=== PATIENT | female | born 1940 | race Caucasian/White ===

== ENCOUNTER → 2017-07-19 15:50 | Outpatient (CLI) | payer MEDICARE, SELFPAY ==
--- NOTE | 2017-07-19 15:57 | XR_ITS ---
EXAM: XR thoracic spine 3V HISTORY: Left-sided back pain following injury COMPARISON: None FINDINGS: There is mild lower thoracic scoliosis convex left. Mild generalized spondylosis present in the thoracic spine was decrease in the disc space and minimal osteophyte formation. No fracture or dislocation. No lytic or blastic change. There is degenerative disc disease at C4-C5 and C5-C6. IMPRESSION: Thoracic spondylosis as described above, no acute finding
--- NOTE | 2017-07-19 15:57 | XR_ITS ---
XR knee LT 3V HISTORY: Posttraumatic pain ITS.REASON: FALL 2 WKS AGO,INJURY TO LEFT KNEE AND BACK ORDERING PHYSICIAN: Bassam Gonzales MD PATIENT AGE: 76 years COMPARISON: 09/04/2010 FINDINGS: There has been prior total knee prosthesis placement which is in good alignment. No evidence of orthopedic complication. There are mild hypertrophic changes along the inferior patellar region. Generalized vascular calcification noted IMPRESSION: Status post total knee replacement, no acute finding
--- NOTE | 2017-07-19 15:57 | XR_ITS ---
EXAM: XR lumbar spine min 4V HISTORY: Left-sided back pain ORDERING PHYSICIAN: Bassam Gonzales MD PATIENT AGE: 76 years COMPARISON: None FINDINGS: There is mild thoracolumbar scoliosis convex left at 15 degrees. No acute fracture or dislocation. As multilevel degenerative disc disease from T12 to S1. Mildly prominent osteophytes are present at L1, L2, and L3. There are facet arthritic changes at L4-L5 and S1. There is slight decrease in height of T11 and T12. This however appears chronic having a similar appearance on prior CT scan of 01/14/2015. Atherosclerotic changes noted of the aorta. There is total right hip prosthesis present. IMPRESSION: 1. Lumbar spondylosis with scoliosis with degenerative disc disease from T12 S1 and facet arthritic changes at L4-5 and L5-S1 2. No acute fracture
== END ==
PROVIDERS: PCP Family Medicine; Visit Provider Family Medicine
DX: M54.5 Low back pain (principal); M54.6 Pain in thoracic spine; M25.562 Pain in left knee
CPT/HCPCS: 72072; 72110; 73562

== ENCOUNTER → 2017-07-24 13:50 | Outpatient (CLI) | payer MEDICARE, SELFPAY ==
--- NOTE | 2017-07-24 13:55 | NVE_ITS ---
Venous Exam Indications: 729.5 Pain in limb. IMPRESSIONS No evidence of deep or superficial vein thrombosis involving the left lower extremity History: Left lower extremity pain. Risk factors: Hypertension. Recent trauma. Patient fell 2 weeks ago with pain behind knee. Renal disease. Left lower extremity venous duplex evaluation. Doppler flow study including spectral analysis, color and flowers scale imaging. Location: Vascular laboratory. Patient status: Outpatient. Tables: Venous flow and imaging: + +-------+ + Location Overall Flow properties + +-------+ + Left common femoral Patent Normal phasicity; spontaneous; normal augmentation; compressible + +-------+ + Left saphenofemoral junction Patent Compressible + +-------+ + Left profunda femoral Patent Compressible + +-------+ + Left femoral Patent Normal phasicity; spontaneous; normal augmentation; compressible + +-------+ + Left greater saphenous Patent Normal phasicity; spontaneous; normal augmentation; compressible + +-------+ + Left popliteal Patent Normal phasicity; spontaneous; normal augmentation; compressible + +-------+ + Left posterior tibial Patent Compressible + +-------+ + Left peroneal Patent Compressible + +-------+ + Left gastrocnemius Patent Compressible + +-------+ + Left soleal Patent Compressible + +-------+ + (Report amended ) Electronically signed by: Naun Vazquez [id number]
== END ==
PROVIDERS: Family Provider Family Medicine; PCP Family Medicine; Visit Provider Family Medicine
DX: M25.562 Pain in left knee (principal)
CPT/HCPCS: 93971

== ENCOUNTER → 2017-08-29 08:41 | Outpatient (CLI) | payer MEDICARE, SELFPAY ==
[2017-08-29 09:22] LABS: Basophils # 0.1 K/mm3 (0-0.2); Basophils % 1.3 % (0.1-2.0); Eosinophils # 0.2 K/mm3 (0.0-0.4); Eosinophils % 6.1 % (0.1-12.0); Hematocrit 36.5 % (37.0-47.0); Hemoglobin 10.9 g/dL (12.2-16.2); Lymphocytes # 1.1 K/mm3 (0.7-4.5); Lymphocytes % 29.4 K/mm3 (10-50); Mean Corpuscular HGB Conc 29.8 g/dL (31.8-35.4); Mean Corpuscular Hemoglobin 30.4 pg (27.0-31.2); Mean Corpuscular Volume 102.1 fl (81-99); Mean Platelet Volume 9.4 fl (7.4-10.4); Monocytes # 0.1 K/mm3 (0.1-1.0); Monocytes % 3.8 % (1.7-9.3); Neutrophils # 2.2 K/mm3 (1.8-7.8); Neutrophils % 59.4 % (37.0-80.0); Platelet Count 177 K/mm3 (142-424); Red Blood Count 3.58 M/mm3 (4.20-5.40); Red Cell Distribution Width 14.4 % (11.5-17.5); White Blood Count 3.8 K/mm3 (4.8-10.8)
[2017-08-29 09:43] LABS: Alanine Aminotransferase 15 U/L (12-78); Albumin Level 3.1 gm/dL (3.4-5.0); Albumin/Globulin Ratio 0.9 (1.1-1.8); Alkaline Phosphatase 79 U/L (46-116); Anion Gap 13.7 mEq/L (5-15); Aspartate Amino Transferase 14 U/L (15-37); Bilirubin,Total 0.4 mg/dL (0.2-1.0); Blood Urea Nitrogen 35 mg/dL (7-18); Calcium 8.8 mg/dL (8.5-10.1); Carbon Dioxide 24 mmol/L (21.0-32.0); Chloride 109 mmol/L (98-107); Chol/HDL Ratio 3.1 (1-3.5); Cholesterol 117 mg/dL (140-200); Creatinine,Serum 1.65 mg/dL (0.55-1.02); Estimated Glomerular Filt Rate 30 ml/min (>60); GFR (African American) 37 ML/MIN (>60); Globulin 3.5 gm/dl (1.3-3.2); Glucose 125 mg/dL (74-106); HDL Cholesterol 38 mg/dL (29-89); LDL Cholesterol 47 mg/dL (0-130); Potassium 4.7 mmoL/L (3.5-5.1); Sodium 142 mmol/L (136-145); Total Protein,Serum 6.6 gm/dL (6.4-8.2); Triglycerides 158 mg/dL (30-200); VLDL Cholesterol 32 mg/dL (0-40)
[2017-08-29 11:04] LABS: Hemoglobin A1C 5.5 % (0.0-7.0)
[2017-08-30 10:55] LABS: Vitamin D 25 Hydroxy 38.2 ng/mL (30.0-100.0)
== END ==
PROVIDERS: Visit Provider Family Medicine
DX: E78.5 Hyperlipidemia, unspecified (principal); E11.9 Type 2 diabetes mellitus without complications; I10 Essential (primary) hypertension; E03.9 Hypothyroidism, unspecified; D64.9 Anemia, unspecified
CPT/HCPCS: 36415; 80053; 80061; 82652; 83036; 84443; 85025

== ENCOUNTER → 2017-09-03 13:38 | Outpatient (CLI) | payer MEDICARE, SELFPAY ==
--- NOTE | 2017-09-03 13:41 | MR_ITS ---
MR lumbar spine wo con, MR 3-d myelogram/MRCP, HISTORY: Lower back pain, left leg pain/weakness, falling around, pain down leg to toes. Symptoms X10 weeks. ITS.REASON: LEFT LEG PAIN, LEFT LEG WEAKNESS ORDERING PHYSICIAN: Bassam Gonzales MD PATIENT AGE: 76 years COMPARISON: Radiograph of to 918 TECHNIQUE: Standard multiplanar multiecho sequences are performed without contrast. 3-D MIP and myelographic images are also rendered and reviewed FINDINGS: There is normal alignment. The spinal cord ends at the L1 level. There is mild lumbar scoliosis convex left with 7 mm left lateral translation of L2 on L3. There is multilevel degenerative disc disease noted at every level and will be outlined below. T11-T12: Degenerative disc disease. T12-L1: Degenerative disc disease with minimal right paracentral disc protrusion along with facet and ligamentum flavum hypertrophy with right lateral recess and mild right foraminal narrowing. Mild central narrowing of the canal is 12 mm. L1-L2: Degenerative disc disease with bulging disc and endplate hypertrophic changes. Small right paracentral disc with associated hypertrophic change at th causing severe right-sided lateral recess narrowing along with moderate to severe right-sided foraminal narrowing L2-L3: Concentric bulging disc with endplate hypertrophic changes with disc disease along with facet and ligamentum flavum hypertrophy with severe bilateral lateral recess and severe bilateral foraminal narrowing greater on the right. There is transverse narrowing of the canal at 7 mm. L3-L4: Degenerative disc disease with bulging disc along with facet and ligamentum flavum hypertrophy with severe left-sided foraminal narrowing and borderline narrowing of the canal. L4-5: Severe degenerative disc disease with 2 mm anterolisthesis of L4. There is prominent bulging disc with small central disc protrusion along with facet and ligamentum flavum hypertrophy with severe canal stenosis. The transverse canal measures approximately 5 mm. There is also AP canal stenosis as well. There is severe lateral lateral recess narrowing along severe left-sided foraminal narrowing and moderate to severe right-sided foraminal narrowing. L5-S1: Degenerative disc disease with bulging disc along with facet and ligamentum flavum hypertrophy with severe bilateral foraminal narrowing slightly greater on the right. Transverse narrowing of the canal at 10 mm. IMPRESSION: Abnormal MRI of the lumbar spine with multilevel lumbar spondylosis with degenerative disc disease, bulging disc, disc fusion along with facet and ligamentum flavum hypertrophy with severe canal stenosis and severe areas of foraminal and lateral recess narrowing. Canal stenosis is most severe at L4-L5 and the foraminal narrowing is severe multiple levels. Please see above for detailed description at each level.
== END ==
PROVIDERS: Family Provider Family Medicine; PCP Family Medicine; Visit Provider Family Medicine
DX: M79.605 Pain in left leg (principal); R29.898 Other symptoms and signs involving the musculoskeletal system
CPT/HCPCS: 72148; 76376

== ENCOUNTER → 2017-09-26 12:27 | Outpatient (POV) | payer MEDICARE, SELFPAY | PROVIDERS: Visit Provider Neurological Surgery | DX: Z00.00 Encounter for general adult medical examination without abnormal findings (principal) ==

== ENCOUNTER → 2017-09-30 09:58 | Outpatient (POV) | payer MEDICARE, SELFPAY | PROVIDERS: Family Provider Family Medicine; Visit Provider Specialist | DX: M79.605 Pain in left leg (principal); G62.9 Polyneuropathy, unspecified; R29.6 Repeated falls | CPT/HCPCS: 95886; 95909 ==

== ENCOUNTER 2017-10-17 08:30 | Outpatient (RCR) | payer MEDICARE, SELFPAY ==
--- NOTE | 2017-09-03 11:17 | HMH.PTOPEV ---
Rehab Outpatient Evaluation Rehab OP Evaluation Start: 09/03/17 10:45 Freq: Status: Active Protocol: Document 09/03/17 10:45 NOHELIA (Rec: 09/03/17 10:57 NOHELIA [id number]) Electronically Signed By Dontrell Doherty, PT 09/03/17 10:45 Outpatient Therapy Subjective History Subjective History Pt reports severe L LE weakness, pain, and radicular s/s since falling on 07/07/17. Pt reports L ankle is very unstable, L calf and thigh are painful with shooting pain, and L hip and L side of low back are also painful. Pt reports multiple falls since injury d/t L ankle weakness. PMH:neuropathy, DM, OA, L TKA, R YONATAN. Pt scheduled for MRI of lumbar spine on 09/03/17, and NCV study on 09/30/17 for L LE Chief Complaint Pain Gives out/Unstable Paresthesia Weakness Symptom Type Ache Throb Sharp Dull Stabbing Burning Numbness Tingling Shooting Symptoms Relieved By Nothing Rest/Positioning Symptoms Aggravated By Standing Physical Activity Walking Prior Functional Limitations None Current Functional Limitations Lifting Housework Standing Sitting Walking Balance Symptom Description Constant but Variable Level of pain today (0-10) 5 Pain scale - at its best (0-10) 4 Pain scale - at its worst (0-10) 10 Lumbopelvic Eval Posture Thoracic Spine Posture Standing Position Flattened Lumbar Spine Posture Standing Position Flattened Assistive device Assistive Devices Wheelchair Gait Observation General Gait Pattern Observation Antalgic Gait Shuffling Step Decrease Weight Bear (L) Decrease Stride Lngth (L) Palapation tenderness right paraspinal tenderness Yes: 07/14
== END 2017-10-17 08:31 | disposition home or self-care (01) ==
LOC: PT 08:30
PROVIDERS: Family Provider Family Medicine; PCP Family Medicine; Visit Provider Nurse Practitioner Family
DX: R29.6 Repeated falls (principal); M79.605 Pain in left leg; G62.89 Other specified polyneuropathies
CPT/HCPCS: 97010; 97014; 97016; 97035; 97110; 97760; G0283

== ENCOUNTER 2017-10-17 15:53 | Outpatient (RCR) | payer MEDICARE, SELFPAY | END 2017-10-17 15:54 | disposition home or self-care (01) | LOC: PT 15:53 | PROVIDERS: Visit Provider Family Medicine | DX: S93.402A Sprain of unspecified ligament of left ankle, initial encounter (principal) ==

== ENCOUNTER 2017-12-05 08:30 | Outpatient (RCR) | payer MEDICARE, SELFPAY ==
--- NOTE | 2017-10-22 10:59 | HMH.PTOPEV ---
PT Outpatient Evaluation Rehab PT Outpatient Evaluation Start: 10/22/17 10:03 Freq: Status: Active Protocol: Document 10/22/17 10:03 NOHELIA (Rec: 10/22/17 10:59 NOHELIA [id number]) Electronically Signed By Dontrell Doherty, PT 10/22/17 10:03 Outpatient Therapy Subjective History Subjective History PT REPORTS H/O CHRONIC L LE WEAKNESS AND PAIN FOR YRS. PT REPORTS FALLING ON 07/07/17, SPRAINING L ANKLE, AND HAS HAD PAIN SINCE. PT RPEORTS MULTIPLE L ANKLE SPRAINS SINCE INITIAL INJURY D/T SEVERE WEAKNESS IN L ANKLE. 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 MM AROUND L ANKLE Chief Complaint Pain Stiff Swelling Gives out/Unstable Paresthesia Weakness Symptom Type Ache Throb Sharp Dull Symptoms Relieved By Rest/Positioning Symptoms Aggravated By Standing Physical Activity Walking Prior Functional Limitations Housework Standing Walking Current Functional Limitations Housework Standing Walking Symptom Description Constant but Variable Level of pain today (0-10) 6 Pain scale - at its best (0-10) 6 Pain scale - at its worst (0-10) 10 Ankle/Foot Eval Gait Observation General Gait Pattern Observation Antalgic Gait Shuffling Step Decrease Weight Bear (L) Decrease Stride Lngth (L) Assistive Device Ambulation Assistive Device Straight Cane Palpation Tenderness left Ankle/Foot Palpation Findings Tenderness Ankle/Foot Palpation Overall Comment 3/4 SINUS TARSI,ATF ATF TTP positive PTF TTP positive CF TTP positive ROM right Ankle/Foot Dorsiflexion w/Knee Extended 0-5 Active Range Motion (degrees) Ankle/Foot Plantar Flexion Active Range 0-45 of Motion (degrees) Ankle/Foot Eversion Active Range of 0-15 Motion (degrees) Ankle/Foot Inversion Active Range of 0-30 Motion (degree
== END 2017-12-05 08:31 | disposition home or self-care (01) ==
LOC: PT 08:30
PROVIDERS: Family Provider Family Medicine; PCP Family Medicine; Visit Provider Family Medicine
DX: M25.572 Pain in left ankle and joints of left foot (principal)
CPT/HCPCS: 97010; 97014; 97016; 97035; 97110; 97116; 97140; 97163; 97760; G0283

== ENCOUNTER → 2018-01-23 14:45 | Outpatient (POV) | payer MEDICARE, SELFPAY ==
[2018-01-23 15:59] LABS: Basophils % 0.7 % (0.1-2.0); Eosinophils # 0.1 K/mm3 (0.0-0.4); Eosinophils % 2.7 % (0.1-12.0); Hemoglobin 9.7 g/dL (12.2-16.2); Lymphocytes # 0.8 K/mm3 (0.7-4.5); Lymphocytes % 18.9 K/mm3 (10-50); Mean Corpuscular HGB Conc 30.3 g/dL (31.8-35.4); Mean Corpuscular Hemoglobin 30.2 pg (27.0-31.2); Mean Corpuscular Volume 99.7 fl (81-99); Monocytes # 0.2 K/mm3 (0.1-1.0); Monocytes % 4.8 % (1.7-9.3); Neutrophils # 3.1 K/mm3 (1.8-7.8); Neutrophils % 72.9 % (37.0-80.0); Platelet Count 138 K/mm3 (142-424); Red Blood Count 3.21 M/mm3 (4.20-5.40); Red Cell Distribution Width 13.6 % (11.5-17.5); White Blood Count 4.2 K/mm3 (4.8-10.8)
[2018-01-23 16:39] LABS: Erythrocyte Sedimentation Rate 51 mm/hr (0-30)
[2018-01-23 16:44] LABS: C-Reactive Protein < 0.2 mg/L (0.0-0.9)
== END ==
PROVIDERS: Family Provider Family Medicine; PCP Family Medicine; Visit Provider Neurological Surgery
DX: D64.9 Anemia, unspecified (principal); E11.42 Type 2 diabetes mellitus with diabetic polyneuropathy
CPT/HCPCS: 36415; 85025; 85651; 86140

== ENCOUNTER → 2018-02-27 14:28 | Outpatient (POV) | payer MEDICARE, SELFPAY | PROVIDERS: Family Provider Family Medicine; PCP Family Medicine; Visit Provider Neurological Surgery | DX: Z00.00 Encounter for general adult medical examination without abnormal findings (principal) ==

== ENCOUNTER → 2018-03-07 10:46 | Outpatient (POV) | payer MEDICARE, SELFPAY | PROVIDERS: Family Provider Family Medicine; PCP Family Medicine; Visit Provider Podiatrist | DX: Z00.00 Encounter for general adult medical examination without abnormal findings (principal) ==

== ENCOUNTER → 2018-08-13 18:14 | Outpatient (CLI) | payer MEDICARE, SELFPAY ==
[2018-08-13 18:20] LABS: Microscopic, Urine URINE MICROSCOPIC (MICROSCOPIC)
[2018-08-13 19:05] LABS: Basophils # 0.1 K/mm3 (0-0.2); Eosinophils # 0.2 K/mm3 (0.0-0.4); Eosinophils % 4.6 % (0.1-12.0); Hematocrit 33.3 % (37.0-47.0); Lymphocytes # 1.1 K/mm3 (0.7-4.5); Mean Corpuscular HGB Conc 30.1 g/dL (31.8-35.4); Mean Corpuscular Volume 102.9 fl (81-99); Mean Platelet Volume 8.8 fl (7.4-10.4); Monocytes # 0.3 K/mm3 (0.1-1.0); Neutrophils % 64.3 % (37.0-80.0); Platelet Count 251 K/mm3 (142-424); Red Blood Count 3.24 M/mm3 (4.20-5.40); Red Cell Distribution Width 15.1 % (11.5-17.5); White Blood Count 4.7 K/mm3 (4.8-10.8)
[2018-08-13 19:39] LABS: Appearance,Urine CLEAR (Clear); Bilirubin,Urine Negative (Negative); Blood, Urine Negative (Negative); Color,Urine ORANGE (Yellow); Glucose,Urine (UA) Negative (Negative); Ketones,Urine Negative (Negative); Leukocyte Esterase,Urine Negative (Negative); Nitrate,Urine POSITIVE (Negative); PH,Urine 5.5 (5.0-8.5); Protein,Urine 1+ (Negative); Specific Gravity, Urine 1.025 (1.005-1.030)
[2018-08-13 20:07] LABS: Bacteria,Urine 1+ /lpf; RBC,Urine Occasional #/hpf (0-3)
[2018-08-13 20:29] LABS: Anion Gap 14.6 mEq/L (5-15); Blood Urea Nitrogen 18 mg/dL (7-18); Calcium 8.3 mg/dL (8.5-10.1); Carbon Dioxide 25 mmol/L (21.0-32.0); Chloride 106 mmol/L (98-107); Creatinine,Serum 1.11 mg/dL (0.55-1.02); Estimated Glomerular Filt Rate 48 ml/min (>60); GFR (African American) 58 ML/MIN (>60); Glucose 109 mg/dL (74-106); Potassium 4.6 mmoL/L (3.5-5.1); Sodium 141 mmol/L (136-145)
== END ==
PROVIDERS: Visit Provider Family Medicine
DX: I10 Essential (primary) hypertension (principal); E11.9 Type 2 diabetes mellitus without complications; N28.9 Disorder of kidney and ureter, unspecified; K74.60 Unspecified cirrhosis of liver; K57.90 Diverticulosis of intestine, part unspecified, without perforation or abscess without bleeding; W19.XXXA Unspecified fall, initial encounter; Z79.84 Long term (current) use of oral hypoglycemic drugs
CPT/HCPCS: 80048; 81001; 85025

== ENCOUNTER 2019-04-02 15:30 | Outpatient (RCR) | payer MEDICARE, SELFPAY ==
--- NOTE | 2018-12-09 15:45 | HMH.PTOPEV ---
PT Outpatient Evaluation Rehab PT Outpatient Evaluation Start: 12/09/18 14:29 Freq: Status: Active Protocol: Document 12/09/18 15:05 RAMONITA (Rec: 12/09/18 15:45 PHORNE [id number]) Electronically Signed By Archie Miranda, PT 12/09/18 15:05 Outpatient Therapy Subjective History Subjective History Pt is 78 yowf who presents with c/o pain and weakness in right LE ~ 9 mos S/P fall at home with resulting right femur fx. Her fx was at the distal end of the stem from her prior right YONATAN and this required ORIF. She now c/o inability to use hip flexors and she is unable to perform a SLR. SHe also reports pain with walking and any movement of the right LE. She states, Its numb right in the area it was broken at. She also states, I take gabapentin 3 times a day and morphine twice a day and it doesn't really help. She has PMH of anxiety, depression, OA and DM-II with neuropathy. Her neuropathy is considerable and from knee distally B. This neuropathy has caused her significant difficulty with ambulation for several years. Chief Complaint Pain,Weakness Symptom Type Ache,Throb,Numbness Symptoms Relieved By Rest/Positioning Symptoms Aggravated By Standing,Physical Activity, Walking Prior Functional Limitations Walking Current Functional Limitations Standing,Walking Symptom Description Activity Dependent Level of pain today (0-10) 0 Pain scale - at its worst (0-10) 7 Hip/Knee Eval Gait Observation General Gait Pattern Observation Antalgic Gait,Wide Based Gait, Shuffling Step,Decrease Weight Bear (R),Decrease Stride Lngth (R),Decrease Stride Lngth (L) Assistive Device Assistive Devices Rolling / Wheeled Walker Palpation Tenderness bilateral Hip Palpation Findings Tenderness MMT right Hip Flexion Strength Grade 2 Poor Hip Abduction Strength Grade 2 Poor Hip Adduction Strength Grade 3 Fair Hip External Rotation Strengt
--- NOTE | 2019-01-16 09:52 | HMH.RHREAS ---
Rehab Reassessment Rehab OP Re-assessment Start: 01/16/19 09:47 Freq: Status: Active Protocol: Document 01/16/19 09:47 RAMONITA (Rec: 01/16/19 09:52 RAMONITA [id number]) Electronically Signed By Archie Miranda, PT 01/16/19 09:47 Rehab Re-assessment Subjective Subjective Pt reports she has less pain and moving better, but continues to have difficulty with transfers. Objective Objective Notes MMT R LE: Grossly 3/5 throughout right hip Ambulation: Pt ambulating with RW, but with continued decrease in right LE WB and stride length Assessment Progress Assessment Progressing as Expected Assessment Notes Right knee hams and hip flexors remain very tight, ambulating better with RW. Patient goals met ST,2,3,4,5 Goals Not Met LT,2,3,4,5 Revised Goals none Plan Plan Continue per intial POC Frequency of Therapy 2x/wk Duration of therapy 8 wks Time and Billing Re-Eval Time 15 Re-Eval Billing Units 1 PHYSICIAN CERTIFICATION: I certify the specified therapy services for Jumana Ayala are required, authorized, and reviewed every 30 days.
--- NOTE | 2019-03-03 09:23 | HMH.RHREAS ---
Rehab Reassessment Rehab OP Re-assessment Start: 01/16/19 09:47 Freq: Status: Active Protocol: Document 03/03/19 09:19 RAMONITA (Rec: 03/03/19 09:23 PHOKATHY [id number]) Electronically Signed By Archie Miranda, PT 03/03/19 09:19 Rehab Re-assessment Subjective Subjective Pt reports 2 falls over the past 3 wks, both on the right side with significant hematoma . No serious injury, only soreness. She reports tingling and numbness in B LE. Objective Objective Notes MMT Right hip: grossly 3+/5 throughout. Ambulation: Pt now ambulating with RW at all times and not using W/C for any mobility. Continues to ambulate with right LE circumduction gait and external rotation of right hip during stance phase on that side. Assessment Progress Assessment Progressing as Expected Assessment Notes Pt with much improved endurance and strength, but continues to require cues for proper gait pattern. Dynamic standing balance remains poor. Patient goals met ST,2,3,4,5 Goals Not Met LT,2,3,4,5 Revised Goals none Plan Plan Continue per intial POC Frequency of Therapy 2x/wk Duration of therapy 8 wks Time and Billing Re-Eval Time 15 Re-Eval Billing Units 1 PHYSICIAN CERTIFICATION: I certify the specified therapy services for Jumana Ayala are required, authorized, and reviewed every 30 days.
== END 2019-04-02 15:35 | disposition home or self-care (01) ==
LOC: PT 15:30
PROVIDERS: Visit Provider Family Medicine
DX: Z87.81 Personal history of (healed) traumatic fracture (principal); M25.551 Pain in right hip
CPT/HCPCS: 97010; 97110; 97112; 97116; 97163; 97164

== ENCOUNTER → 2019-12-10 16:16 | Outpatient (CLI) | payer MEDICARE, SELFPAY | PROVIDERS: Visit Provider Urology | DX: N39.0 Urinary tract infection, site not specified (principal) | CPT/HCPCS: 87086; 87088; 87186 ==

== ENCOUNTER → 2019-12-25 10:39 | Outpatient (CLI) | payer MEDICARE, SELFPAY ==
--- NOTE | 2019-12-25 10:45 | CA_ITS ---
APPROVED REPORT Left Lower Extremity Venous Study for DVT. 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 States she has had leg pain for several years. She has HTN, hyperlipidemia, and diabetes mellitus. She has pitting edema noted today in LLE. Vein Imaging CFV (L): compressive, spontaneous, phasic, augmentation FEM (L): compressive, spontaneous, phasic, augmentation POP (L): compressive, spontaneous, phasic, augmentation PTV (L): Not Visualized GSV (L): Thrombus SSV (L): Compressible Peroneals (L):Not Visualized GAS (L): Compressible Findings No evidence of DV in the veins scanned of the left lower extremity. Color flow duplex demonstrates acute superficial thrombophlebitis of the left Great Saphenous Vein below the knee. Conclusion No evidence of DV in the veins scanned of the left lower extremity. Post tib and peroneal vein not demonstrated Color flow duplex demonstrates acute superficial thrombophlebitis of the left Great Saphenous Vein below the knee. Critical Notification Physician Notified Date: 12/25/2019 Time: 11:25 Physician Name: hCristian Report Read Back Electronically signed by : Naun Vazquez MD 12/25/2019 18:45:34
== END ==
PROVIDERS: PCP Family Medicine; Visit Provider Family Medicine
DX: M79.605 Pain in left leg (principal)
CPT/HCPCS: 93971

== ENCOUNTER → 2020-01-21 15:00 | Outpatient (CLI) | payer MEDICARE, SELFPAY | PROVIDERS: Visit Provider Urology | DX: N39.0 Urinary tract infection, site not specified (principal) | CPT/HCPCS: 87086 ==

== ENCOUNTER 2020-03-13 22:16 | Inpatient (IN) | payer MEDICARE, SELFPAY ==
[2020-03-13 22:30] VITALS: BP 124/78; PULSE 148; RESP 26; TEMP 36.4; O2SAT 87; BMI 19.3
--- NOTE | 2020-03-13 22:37 | XR_ITS ---
PROCEDURE: XR CHEST PORTABLE CLINICAL HISTORY: soa Shortness of air COMPARISON: No exams were available for comparison FINDINGS: Mild cardiomegaly.. There is diffuse bilateral alveolar opacification. The consolidation is greater on the right compared to the left. There may be trace bilateral effusions. No acute bony findings. IMPRESSION: Diffuse bilateral alveolar disease which may be due to extensive multifocal pneumonia versus ARDS Dictated by: Naun Vazquez MD 03/14/2020 05:57 Naun Vazquez MD in [place] 03/14/2020 05:57
--- NOTE | 2020-03-13 22:37 | ECG_ITS ---
APPROVED REPORT Exam: Resting ECG HR:154 bpm ECG Measurements Heart Rate 154 AXES QRSd 90 QRS 93 QT 256 T 258 QTc 410 <Conclusion> Undetermined rhythm Rightward axis Low voltage QRS Nonspecific T wave abnormality Abnormal ECG Electronically signed by : Roberto Carlos Dickerson, 03/14/2020 06:54:39
[2020-03-13 22:41] LABS: ABG Base Excess -14.2 mmol/L (-2.4-2.3); ABG HCO3 13.9 mmhg (22.0-26.0); ABG Oxygen Saturation 90 % (90-100); ABG PCO2 36.3 mmhg (35.0-45.0); ABG PO2 68.8 mmhg (80-100)
[2020-03-13 22:42] LABS: Allen's Test Y; Oxygen 2 %; Source R/R
--- NOTE | 2020-03-13 22:44 | HMH.EDSOB ---
ED Disposition Clinical Impression: Severe sepsis with acute organ dysfunction, Septic shock, Diabetes 1.5, managed as type 2, Elevated brain natriuretic peptide (BNP) level, LM (acute kidney injury), Atrial flutter with rapid ventricular response Community acquired pneumonia Qualifiers: Laterality: unspecified laterality Qualified Code(s): J18.9 - Pneumonia, unspecified organism UTI (urinary tract infection) Qualifiers: Urinary tract infection type: site unspecified Hematuria presence: without hematuria Qualified Code(s): N39.0 - Urinary tract infection, site not specified Disposition: Admitted As Inpatient Condition on Discharge: Serious Referrals: Bassam Gonzales MD [Primary Care Provider] - - Critical Care Critical Care Time: Yes Attestation: On 03/13/20, the high probability of a clinically significant, sudden or life threatening deterioration of the following system(s) required my full and direct attention, intervention and personal management. The time I documented below is in addition to time spent performing reported procedures but includes the following listed in this critical care notation. Total Critical Care Time: 90 Vital system(s) involved:: Metabolic Failure, Shock (Septic) My critical care processes included: Assessment & monitoring of V/S, Initial and Re-exams, Data Review/Interpretation, Medication Orders and management, Documentation Medical Decision Making - Medical Records Medical records reviewed: Yes: I reviewed the patient's medical records. - Mehran Inquiry Pt receiving controlled substance: No Vital Signs: 03/13/20 22:30 03/13/20 23:35 03/13/20 23:49 Temperature 97.6 F Temperature Source Oral Pulse Rate [Right] 148 H 130 H 126 H Respiratory Rate 26 H 24 23 Blood Pressure [Right Arm] 124/78 80/63 L 96/46 L Blood Pressure Mean [Right Arm] 93 68 62 Blood Pressure Source [Right Arm] Automatic Cuff Automatic Cuff Blood Pressure Position [Right Arm] Sitting Supine Sitting 02 Sat by Pulse Oximetry 87 L 88 L 94 L Oxygen Delivery Method Room Air Nasal Cannula Nasal Cannula Oxygen Flow Rate (LPM) 2 2 03/14/20 00:00 03/14/20 00:30 03/14/20 00:50 Temperature Temperature Source Pulse Rate [Right] 77 96 H 102 H Respiratory Rate 13 17 Blood Pressure [Right Arm] 82/57 L 111/67 75/54 L Blood Pressure Mean [Right Arm] 65 81 61 Blood Pressure Source [Right Arm] Automatic Cuff Automatic Cuff Blood Pressure Position [Right Arm] Supine Supine 02 Sat by Pulse Oximetry 89 L 87 L 82 L Oxygen Delivery Method Nasal Cannula Nasal Cannula Nasal Cannula Oxygen Flow Rate (LPM) 3 3 4 03/14/20 00:58 03/14/20 01:20 03/14/20 01:36 Temperature Temperature Source Pulse Rate [Right] 100 H 95 H 94 H Respiratory Rate 22 24 Blood Pressure [Right Arm] 109/91 L 78/54 L 110/78 Blood Pressure Mean [Right Arm] 97 62 88 Blood Pressure Source [Right Arm] Blood Pressure Position [Right Arm] 02 Sat by Pulse Oximetry 84 L 92 L Oxygen Delivery Method Nasal Cannula Vapotherm Oxygen Flow Rate (LPM) 4 30 03/14/20 01:50 Temperature Temperature Source Pulse Rate [Right] 92 H Respiratory Rate 20 Blood Pressure [Right Arm] 104/76 L Blood Pressure Mean [Right Arm] 85 Blood Pressure Source [Right Arm] Blood Pressure Position [Right Arm] 02 Sat by Pulse Oximetry 91 L Oxygen Delivery Method Vapotherm Oxygen Flow Rate (LPM) - Lab Data Lab results reviewed: Yes: I reviewed the patient's lab results. Lab Results 03/13/20 22:30: WBC 14.0 H, RBC 3.49 L, Hgb 11.0 L, Hct 36.7 L, MCV 104.9 H, MCH 31.6 H, MCHC 30.1 L, RDW 16.3, Plt Count 309, MPV 9.2, Neut % (Auto) 85.4 H, Lymph % (Auto) 9.3 L, Marshall % (Auto) 3.9, Eos % (Auto) 0.9, Baso % (Auto) 0.5, Neut # (Auto) 11.9 H, Lymph # (Auto) 1.3, Marshall # (Auto) 0.5, Eos # (Auto) 0.1, Baso # (Auto) 0.1, Total Counted 100, Neutrophils % (Manual) 89 H, Band Neutrophils % 5.0, Lymphocytes % (Manual) 5 L, Monocytes % (Manual) 1 L, Platelet Estim
[2020-03-13 22:47] LABS: Basophils # 0.1 K/mm3 (0-0.2); Basophils % 0.5 % (0.1-2.0); Eosinophils # 0.1 K/mm3 (0.0-0.4); Eosinophils % 0.9 % (0.1-12.0); Hematocrit 36.7 % (37.0-47.0); Lymphocytes # 1.3 K/mm3 (0.7-4.5); Lymphocytes % 9.3 % (10-50); Mean Corpuscular HGB Conc 30.1 g/dL (31.8-35.4); Mean Corpuscular Hemoglobin 31.6 pg (27.0-31.2); Mean Corpuscular Volume 104.9 fl (81-99); Mean Platelet Volume 9.2 fl (7.4-10.4); Monocytes # 0.5 K/mm3 (0.1-1.0); Monocytes % 3.9 % (1.7-9.3); Neutrophils # 11.9 K/mm3 (1.8-7.8); Neutrophils % 85.4 % (37.0-80.0); Platelet Count 309 K/mm3 (142-424); Red Blood Count 3.49 M/mm3 (4.20-5.40); Red Cell Distribution Width 16.3 % (11.5-17.5)
[2020-03-13 22:49] LABS: MANUAL DIFFERENTIAL MANUAL DIFFERENTIAL (MANUAL DIFF)
[2020-03-13 23:01] LABS: Chloride 110 mmol/L (98-107); Sodium 139 mmol/L (136-145)
[2020-03-13 23:04] LABS: Alanine Aminotransferase 15 U/L (12-78); Albumin Level 2.8 g/dl (3.5-5.0); Albumin/Globulin Ratio 0.8 (1.1-1.8); Alkaline Phosphatase 141 U/L (38-126); Aspartate Amino Transferase 35 U/L (14-36); Bilirubin,Total 1.2 mg/dl (0.2-1.3); Blood Urea Nitrogen 45 mg/dl (7-17); Carbon Dioxide 19 mmol/L (22.0-30.0); Creatinine Clearance Estimated 16 mL/min (50-200); Estimated Glomerular Filt Rate 19 ml/min (>60); GFR (African American) 23 ML/MIN (>60); Globulin 3.7 g/dL (1.3-3.2); Total Protein,Serum 6.5 g/dl (6.3-8.2)
[2020-03-13 23:05] LABS: Microscopic, Urine URINE MICROSCOPIC (MICROSCOPIC)
[2020-03-13 23:05] LABS: Calcium 8.8 mg/dl (8.4-10.2); Glucose 125 mg/dl (74-100)
[2020-03-13 23:13] LABS: Coronavirus 19 IgG Antibody Negative (Negative); Coronavirus 19 IgM Antibody Negative (Negative); NT Pro Brain Natriuretic Pep. 14800 pg/mL (0-450)
[2020-03-13 23:15] LABS: Lactic Acid 4.2 mmol/L (0.7-2.1)
[2020-03-13 23:18] LABS: Appearance,Urine TURBID (Clear); Blood, Urine 3+ (Negative); Color,Urine YELLOW (Yellow); Glucose,Urine (UA) Negative (Negative); Ketones,Urine Negative (Negative); Leukocyte Esterase,Urine 2+ (Negative); Nitrate,Urine Negative (Negative); Protein,Urine 2+ (Negative); Urobilinogen,Urine 0.2 EU/dl (0.2)
[2020-03-13 23:21] LABS: Troponin I < 0.01 ng/ml (0.00-0.034)
[2020-03-13 23:25] LABS: Anisocytosis 1+; Hypochromasia 2+; Lymphocytes % 5 % (10-50); Macrocytosis 3+; Monocytes % 1 % (2-9); Neutrophils % 89 % (42-76); Platelet Estimate Normal; Total Cells Counted 100
[2020-03-13 23:33] LABS: Bilirubin,Urine Negative (Negative)
[2020-03-13 23:34] LABS: RBC,Urine 20-50 #/hpf (0-3); WBC,Urine TNTC #/hpf (0-3)
[2020-03-13 23:35] VITALS: BP 80/63; PULSE 130; RESP 24; O2SAT 88
--- NOTE | 2020-03-13 23:46 | INFXCTL.NOTE ---
speaking with Dr. Bean
[2020-03-13 23:49] VITALS: BP 96/46; PULSE 126; RESP 23; O2SAT 94
[2020-03-14] VITALS (48 sets, daily range): BP systolic 73–133; BP diastolic 31–98; PULSE 77–110; RESP 12–92; TEMP 36.5–36.8; O2SAT 82–95; BMI 23.6
--- NOTE | 2020-03-14 | ECG_ITS ---
APPROVED REPORT Exam: Resting ECG HR:79 bpm ECG Measurements Heart Rate 79 AXES QRSd 76 QRS 79 QT 352 T 32 QTc 403 <Conclusion> Atrial flutter with variable AV block Low voltage QRS Nonspecific ST and T wave abnormality Abnormal ECG Electronically signed by : Roberto Carlos Dickerson, 03/14/2020 06:54:27
[2020-03-14 00:33] LABS: Adenovirus,PCR Not Detected (NotDetected); Bordetella Pertussis Not Detected (NotDetected); Chlamydophila Pneumoniae, PCR Not Detected (NotDetected); Coronavirus 19, PCR Not Detected (NotDetected); Coronavirus 229E Not Detected (NotDetected); Coronavirus NL63 Not Detected (NotDetected); Coronavirus OC43 Not Detected (NotDetected); Coronovirus HKU1,PCR Not Detected (NotDetected); Human Metapneumovirus Not Detected (NotDetected); Influenza A, PCR Not Detected (NotDetected); Influenza AH1, 2009 Not Detected (NotDetected); Influenza AH1, PCR Not Detected (NotDetected); Influenza AH3,PCR Not Detected (NotDetected); Influenza B, PCR Not Detected (NotDetected); Mycoplasma Pneumoniae, PCR Not Detected (NotDetected); Parainfluenza 1, PCR Not Detected (NotDetected); Parainfluenza 2, PCR Not Detected (NotDetected); Parainfluenza 3, PCR Not Detected (NotDetected); Parainfluenza 4, PCR Not Detected (NotDetected); Respiratory Syncytial Virus Not Detected (NotDetected); Rhinovirus/Enterovirus Not Detected (NotDetected)
--- NOTE | 2020-03-14 00:48 | PC.NURSE ---
Bj-synephrine increased to 140 mcg/min and O2 increased to 4L/M
--- NOTE | 2020-03-14 01:19 | PC.NURSE ---
Bj-synephrine increased to 180mcg/min
[2020-03-14 02:16] LABS: Reflex Lactic Add Lactic Reflex
[2020-03-14 02:34] LABS: Lactic Acid Follow Up (RFLX 1) 2.1 mmol/L (0.7-2.1)
--- NOTE | 2020-03-14 02:38 | PC.NURSE ---
patient up to floor via stretcher per RN and HOOKER UP.
[2020-03-14 02:46] LABS: Troponin I < 0.01 ng/ml (0.00-0.034)
[2020-03-14 02:46] LABS: T4 (Thyroxine) 2.8 ug/dl (5.53-11.0)
[2020-03-14 02:49] LABS: Reflex Lactic (2 hrs) Add Lactic Reflex
--- NOTE | 2020-03-14 05:11 | PC.NURSE ---
Pt A&O x3. Arrived to floor on Cardizem gtt infusing @ 5 mg/hr and currently infusing at rate. Bj Synephrine gtt infusing @ 180 mcg/min. Titrated per protocol. Currently infusing at 140 mcg/min. VSS at this time. Pt remains afebrile. F/C draining to bedside. 10 cc urine output noted since arrival to floor. Urometer placed for accuracy. Pt noted to have ulcer to (L) great toe. Pictures on chart. Pt currently on 70%, 30 L Vapotherm. Crackles noted to (L) base. Expiratory wheezing noted t/o. BS active. Pt has not c/o any discomfort. Family has been in to visit pt. Son's are POA. Pt is full code status. They did not have pt's home medications or list. They state that pt manages self but do not know if she can continue to do so. Will pass on to AM nurse for pharmacy to clarify medications.
[2020-03-14 05:31] LABS: Basophils % 0.2 % (0.1-2.0); Eosinophils # 0.1 K/mm3 (0.0-0.4); Hematocrit 39.9 % (37.0-47.0); Hemoglobin 11.9 g/dL (12.2-16.2); Lymphocytes # 0.9 K/mm3 (0.7-4.5); Mean Corpuscular HGB Conc 29.8 g/dL (31.8-35.4); Mean Corpuscular Hemoglobin 31.5 pg (27.0-31.2); Mean Corpuscular Volume 105.7 fl (81-99); Mean Platelet Volume 9.9 fl (7.4-10.4); Monocytes # 0.3 K/mm3 (0.1-1.0); Monocytes % 2.3 % (1.7-9.3); Neutrophils # 13.5 K/mm3 (1.8-7.8); Neutrophils % 90.5 % (37.0-80.0); Platelet Count 312 K/mm3 (142-424); Red Blood Count 3.78 M/mm3 (4.20-5.40); Red Cell Distribution Width 16.1 % (11.5-17.5); White Blood Count 14.9 K/mm3 (4.8-10.8)
[2020-03-14 05:35] LABS: Anion Gap 14.9 mEq/L (5-15); Blood Urea Nitrogen 45 mg/dl (7-17); Calcium 8.2 mg/dl (8.4-10.2); Carbon Dioxide 17 mmol/L (22.0-30.0); Chloride 114 mmol/L (98-107); Creatinine Clearance Estimated 21 mL/min (50-200); Estimated Glomerular Filt Rate 21 ml/min (>60); GFR (African American) 25 ML/MIN (>60); Glucose 111 mg/dl (74-100); Magnesium 2.1 mg/dl (1.6-2.3); Sodium 140 mmol/L (136-145)
[2020-03-14 05:37] LABS: Lactic Acid Follow up (RFLX 2) 2.6 mmol/L (0.7-2.1)
[2020-03-14 05:38] LABS: Potassium 5.9 mmoL/L (3.5-5.1)
[2020-03-14 05:39] LABS: INR 1.46 (0.9-1.1); Prothrombin Time 15.7 seconds (9.4-11.8)
[2020-03-14 05:49] LABS: Troponin I 0.01 ng/ml (0.00-0.034)
--- NOTE | 2020-03-14 07:00 | XR_ITS ---
PROCEDURE: XR CHEST PORTABLE CLINICAL HISTORY: sob COMPARISON: CR XR CHEST PORTABLE from 03/13/2020 FINDINGS: There remains diffuse bilateral alveolar opacification probably overall not significantly changed considering some improvement in inspiration consistent with bilateral pneumonia versus ARDS. Mild cardiomegaly. No acute bony abnormalities. IMPRESSION: Overall no change in the diffuse bilateral airspace disease which may represent pneumonia or ARDS Dictated by: Naun Vazquez MD 03/14/2020 06:58 Naun Vazquez MD in [place] 03/14/2020 06:58
--- NOTE | 2020-03-14 07:22 | PC.NURSE ---
Bj Synephrine titration as follows: 0327 - 140 mcg/min 0538 - 120 mcg/min 0722 - 110 mcg/min
--- NOTE | 2020-03-14 07:36 | P.CONPHA_ITS ---
[facility] Pharmacy VTE Monitoring - Patient Demographics Admission date: 03/13/20 Report Date: 03/14/20 Time: 07:36 Allergies/Adverse Reactions: Patient Allergies PENICILLIN Allergy (Unknown, Uncoded 01/21/20 09:55) MOUTH SWELLS SULFA (SULFONAMIDE) Allergy (Unknown, Uncoded 01/21/20 09:55) SHAKEY Height: 1.68 m Weight: 66.395 kg Patient Problems: Current Active Problems Community acquired pneumonia (Acute) UTI (urinary tract infection) (Acute) Severe sepsis with acute organ dysfunction (Acute) Septic shock (Acute) Diabetes 1.5, managed as type 2 (Acute) Elevated brain natriuretic peptide (BNP) level (Acute) LM (acute kidney injury) (Acute) Atrial flutter with rapid ventricular response (Acute) - VTE Risk Labs: VTE Related Lab Results Hgb 11.9 g/dL (12.2-16.2) L 03/14/20 05:15 Hct 39.9 % (37.0-47.0) 03/14/20 05:15 Plt Count 312 K/mm3 (142-424) 03/14/20 05:15 PT 15.7 seconds (9.4-11.8) H 03/14/20 05:15 INR 1.46 (0.9-1.1) H 03/14/20 05:15 BUN 45 mg/dl (7-17) H 03/14/20 05:15 Creatinine 2.30 mg/dl (0.52-1.04) H 03/14/20 05:15 Estimated Creat Clear 21 mL/min (50-200) 03/14/20 05:15 VTE Risk Level: Moderate Risk - Prophylaxis VTE Prophylaxis Ordered?: Yes Types of VTE Prophylaxis: TEDS Knee High Location of Applied Device: Bilateral Lower Extremeties
--- NOTE | 2020-03-14 08:00 | CA_ITS ---
APPROVED REPORT Bilateral Lower Extremity Venous Study for DVT. [employer] Apprentice: CT Indications Lower Extremity Pain: Bilateral Lower Extremity Edema: Bilateral swelling/possible dvt Vein Imaging CFV (R): compressive, spontaneous, phasic, augmentation SFJ (R): compressive, spontaneous, phasic, augmentation FEM (R): compressive, spontaneous, phasic, augmentation POP (R): compressive, spontaneous, phasic, augmentation DFV (R): compressive, spontaneous, phasic, augmentation PTV (R): Compressible GSV (R): Partially Compressible SSV (R): Not Visualized Peroneals (R):Not Visualized GAS (R): Not Visualized EIV (L): Not Visualized CFV (L): compressive, spontaneous, phasic, augmentation SFJ (L): compressive, spontaneous, phasic, augmentation FEM (L): compressive, spontaneous, phasic, augmentation POP (L): compressive, spontaneous, phasic, augmentation DFV (L): compressive, spontaneous, phasic, augmentation PTV (L): compressive, spontaneous, phasic, augmentation GSV (L): Partially Compressible SSV (L): Not Visualized Peroneals (L):Not Visualized GAS (L): Compressible Findings RLE negative for DVT LLE negative for DVT RLE and LLE positive for SVT in the GSV. TDS. Conclusion RLE negative for DVT LLE negative for DVT RLE and LLE positive for SVT in the GSV. TDS. Electronically signed by : Naun Vazquez MD 03/14/2020 17:24:10
--- NOTE | 2020-03-14 08:00 | CA_ITS ---
APPROVED REPORT EXAM: Comprehensive 2D, Doppler, and color-flow Echocardiogram [employer] Clerk: Shara Marion CRT Ht: 5 ft 6 in Wt: 120lbs BSA: 1.61 BP: 96/46 mmHg Indications: Shortness of Breath, Diabetes, Atrial Flutter, Hyperlipidemia, Hypertension/HDD, septic, CAP, UTI 2D Dimensions LVOT 1.77 cm (M/F) 1.5-2.5 M-Mode Dimensions RVDd 2.90 cm (0.9-2.6) LVDd 3.67 cm (3.5-5.7) LVDs 3.05 cm (3.5-5.7) IVSd 0.92 cm (0.6-1.1) PWd 0.57 cm (0.6-1.1) EF (Teich) 36.10% FS 16.90% EDV (Teich) 57.00 mL ESV (Teich) 36.40 mL LV Diastology E/A Ratio 5.40 Mitral Valve MV A Velocity 21.00 (40-130 cm/s) Left Ventricle Left atrium is moderately enlarged, left ventricle is normal size, mild concentric left ventricular hypertrophy, visually estimated ejection fraction 55% with no regional wall motion abnormality, diastolic parameters are inconclusive. Right Ventricle Right atrium and right ventricle moderately enlarged with normal contractility. Aortic Valve Aortic valve is thickened and calcified with mild restriction in leaflet mobility, Doppler is not indicated for significant aortic stenosis or aortic insufficiency. Mitral Valve Mitral valve has mitral annular calcification which extends in both anterior posterior mitral leaflet, there is no mitral stenosis, there is mild mitral regurgitation. Tricuspid Valve Tricuspid valve leaflets are minimally thickened, there is moderate tricuspid regurgitation, calculated right ventricular systolic pressure is 43 mmHg. Pulmonic Valve Pulmonic valve is poorly visualized. Great Vessels Aortic root is normal size. Pericardium No significant pericardial effusion noted. Conclusion 1. Technically difficult study because of the patient factors and poor acoustic windows. 2. Moderate biatrial abdomen, normal left ventricular size, mild concentric left ventricular hypertrophy, visually estimated ejection fraction 55% with no regional wall motion abnormality, diastolic parameters are inconclusive. 3. Moderately enlarged right ventricle with normal contractility. 4. Thickened and calcified aortic valve without Doppler evidence of aortic stenosis or aortic insufficiency. 5. Mild mitral and moderate tricuspid regurgitation, calculated right ventricular systolic pressure 43 mmHg. 6. No significant pericardial effusion noted. Electronically signed by : Obed Dodd, 03/14/2020 20:11:56
--- NOTE | 2020-03-14 08:01 | HMH.CNCARD ---
History of Present Illness Consult date: 03/14/20 Consult reason: shortness of breath Chief complaint: SOA Additional Medical History:: 1. Hypertension 2. Hyperlipidemia 3. History of rheumatoid arthritis and Polymyalgia Rheumatica 4. History of spinal stenosis with chronic lower extremity pain 5. History of renal insufficiency with creatinine of 1.1 last year but previously as high as 1.8 back in 2013 6. History of cirrhosis 7. History of hepatitis B 8. Non-smoker 9. Diabetes mellitus type 2 10. Anxiety and depression 11. Hypothyroidism, on replacement therapy History of present illness: 79-year-old white female admitted for progressive shortness of breath with nonproductive cough at home. Patient is responsive to questions but hard of hearing and does not elaborate much. Patient noted to have rapid ventricular response in the ER with underlying rhythm felt to be atrial flutter. Patient was started on IV diltiazem for rate control and Bj-Synephrine for hypotension. Troponins have returned normal overnight. BNP noted to be elevated at 14,800 with chest x-ray evidence of bilateral pneumonia versus ARDS pattern. Patient is COVID negative. Patient has some acute on chronic renal insufficiency and has noted to have a little urine output this morning after over 3 L of fluids during the night. This a.m. heart rate is in the 70 to 90 bpm range on diltiazem 5 mg/h. She remains on Bj-Synephrine with blood pressure in the 120's mmHg systolic. Echocardiogram being performed at this time with preliminary reading showing ejection fraction approximately 50%. [facility] History Medical History: Reports:: Anxiety, Depression, Diabetes Mellitus Type 2, Hepatitis, Hyperlipidemia, Hypertension Denies:: Cancer, MRSA *Have you ever received a pneumonia vaccine?: Yes *Have you received a flu vaccine this season?: No Other Medical History: Reports: Arthritis, Cataracts, Hypothyroidism Laterality Cases: Right: Total Hip Replacement Other Surgeries: Yes: Colon Resection, Hysterectomy-Total, Hysterectomy-Partial Amputation: No Fractures: No - *Social History Last grade of school completed: High school graduate Smoking Status: Never smoker Alcohol Intake: never Alcohol Intake Frequency:: other Substance Use Type: denies use *Occupational Status:: retired Housing: apartment Household Members: none *Travel in the last 8 weeks: None - Psychiatric History Pschychiatric History:: Reports:: Anxiety, Depression Family Hx:: Cancer, Coronary Artery Disease, Diabetes, Heart Attack, Hyperlipidemia, Hypertension, Thyroid Disorder Meds Home Medications Medication Instructions Recorded Confirmed Type atorvastatin 40 mg tablet 40 mg PO HS 08/29/17 03/14/20 History buspirone 10 mg tablet 10 mg PO BID 08/29/17 03/14/20 History gabapentin 300 mg capsule 600 mg PO TID 08/29/17 03/14/20 History leflunomide 20 mg tablet 20 mg PO DAILY 08/29/17 03/14/20 History morphine 15 mg tablet,extended 15 mg PO Q12H 08/29/17 03/14/20 History release Aspirin [Aspirin 81mg EC Tab] 81 mg PO DAILY 03/14/20 03/14/20 History Cholecalciferol (Vitamin D3) 1,000 unit PO DAILY 03/14/20 03/14/20 History [Vitamin D3 1,000 Unit Tab] Cyanocobalamin (Vitamin B-12) 1,000 mcg PO DAILY 03/14/20 03/14/20 History [B-12] Furosemide [Furosemide 20mg Tab*] 20 mg PO DAILY 03/14/20 03/14/20 History Levothyroxine Sodium 175 mcg PO DAILY 03/14/20 03/14/20 History [Levothyroxine 175mcg (0.175mg) Tab] Metformin HCl 500 mg PO DAILY 03/14/20 03/14/20 History Metoprolol Succinate [Metoprolol 25 mg PO DAILY 03/14/20 03/14/20 History Succinate 25mg Tablet*] Naproxen [Naproxen 500mg tab] 500 mg PO BID 03/14/20 03/14/20 History Sertraline HCl [Zoloft] 50 mg PO DAILY 03/14/20 03/14/20 History Sertraline HCl [Zoloft] 100 mg PO HS 03/14/20 03/14/20 History Allergies Allergy/AdvReac Type Severity Reaction Status Date / Time Penicillins Allergy Severe Swelling Verified 03/14/20 0
--- NOTE | 2020-03-14 08:20 | PC.NURSE ---
SPOKE TO ENIO FOR CONSULT FOR
--- NOTE | 2020-03-14 08:49 | PC.NURSE ---
per Nya ROMAN keep sbp >100 neosynephrine gtt decreased as follows: 0753 100mcg/min 0815 90mcg/min 0845 80mcg/min
--- NOTE | 2020-03-14 09:02 | HMH.HP ---
*Admission Date: 03/13/20 *Chief complaint: Shortness of breath *History of present illness: Ms. Ayala is a 79-year-old female with a history of hypertension, hypothyroidism, hyperlipidemia, type 2 diabetes mellitus, depression, history of cirrhosis with history of hepatitis B, mild renal insufficiency, GERD, anemia, osteoarthritis, Pollymyalgia rheumatica and rheumatoid arthritis, and severe lumbar spinal stenosis, and osteoporosis who presented to [facility] With progressive shortness of breath and a nonproductive cough at home. Patient denies chest pain at this time. She states her breathing is better. She does state that her back is bothering her. In the emergency room patient was noted to have a rapid ventricular response with underlying rhythm felt to be atrial flutter. She was started on IV diltiazem drip for rate control and Bj-Synephrine for hypotension. Troponins returned normal. BNP was noted to be elevated at 14,800. Chest x-ray revealed evidence of bilateral pneumonia versus ards pattern. Note also that patient is COVID negative. She also demonstrated acute on chronic renal insufficiency. White blood cell count was found to be 14,000 with a hemoglobin of 11 and hematocrit of 36.7. ABGs revealed a metabolic acidosis with a pH of 7.2 PCO2 of 36.3 PO2 of 68.8 and a bicarb of 13.9. Urinary tract infection also noted Respiratory PCR panel was negative. Chest x-ray revealed diffuse bilateral alveolar disease possibly due to extensive multifocal pneumonia versus ARDS. At the time of this exam patient does answer questions but is hard of hearing and responses are slow and brief. He is currently having an echocardiogram and venous Doppler studies. She has been seen by cardiology with the following: Chads?Vascor at least 5 with a risk of thromboembolic event . Patient started on Lovenox. Preliminary echo shows ejection fraction of about 50%. Noted also weaning of the Bj-Synephrine drip to keep systolic blood pressure greater than 100. Also felt BNP is secondary to pulmonary issues. 80 mg of Lasix given due to minimal urinary output after greater than 3 L of IV fluids given since arrival to the emergency room. Labs this morning show potassium of 5.9. Chest x-ray remains unchanged. [facility] History Medical History: Reports:: Anxiety, Depression, Diabetes Mellitus Type 2, Hepatitis, Hyperlipidemia, Hypertension, Osteoporosis, Renal Insufficiency, Urinary Tract Infection Denies:: Cancer, MRSA *Have you ever received a pneumonia vaccine?: Yes *Have you received a flu vaccine this season?: No Other Medical History: Reports: Arthritis, Cataracts, Hypothyroidism, Osteoporosis Laterality Cases: Left: Total Knee Replacement, Right: Total Hip Replacement Other Surgeries: Yes: Colon Resection, Hysterectomy-Total, Hysterectomy-Partial Amputation: No Fractures: No - *Social History Last grade of school completed: High school graduate Smoking Status: Never smoker Alcohol Intake: never Alcohol Intake Frequency:: other Substance Use Type: denies use *Occupational Status:: retired Housing: apartment Household Members: none *Travel in the last 8 weeks: None - Psychiatric History Pschychiatric History:: Reports:: Anxiety, Depression Family Hx:: Cancer, Coronary Artery Disease, Diabetes, Heart Attack, Hyperlipidemia, Hypertension, Thyroid Disorder Review of Systems - Constitutional Reports weakness - ENT Denies ear pain, Denies sore throat - *Cardiovascular Reports shortness of breath, Denies chest pain - *Respiratory Reports cough, Reports shortness of breath - *Gastrointestinal Denies abdominal pain, Denies nausea, Denies vomiting - *Genitourinary Denies difficulty urinating - *Musculoskeletal Reports joint pain, Reports back pain - *Neurologic Reports weakness, Denies confusion, Denies localized weakness, Denies headache(s), Denies tingling/numbness/burning sensations Meds Home Medications Medication
--- NOTE | 2020-03-14 09:40 | HMH.PHAINT ---
MEDICATION RECONCILIATION COMPLETED ON PATIENT USING EXTERNAL FILL HISTORY FROM PHARMACY AND LIST FROM [facility] OFFICE. -CHRISTIAN ALMONTED
--- NOTE | 2020-03-14 09:43 | US_ITS ---
PROCEDURE: US KIDNEY CLINICAL INDICATION: decreased uop Decreased urinary output COMPARISON: CT ABDPELW/O CT ABD PELVIS W/O CONTRAST from 01/14/2015 CR XR CHEST PORTABLE from 03/14/2020 FINDINGS: The right kidney is 7 0.5 x 7 cm. Left kidney is 7.3 x 6 3 cm. No hydronephrosis. There is a small amount perinephric fluid.. There is generalized ascites. Very little blood flow detected within the kidneys however, this may be artifactual. Study is somewhat limited secondary to portable technique and patient's respiratory status. IMPRESSION: No evidence of hydronephrosis. Generalized ascites. Very little blood flow detected within the kidneys however this could be secondary to the sonographic technique Dictated by: Naun Vazquez MD 03/14/2020 10:44 Naun Vazquez MD in [place] 03/14/2020 10:44
--- NOTE | 2020-03-14 09:55 | PC.NURSE ---
per Dr. Warren: place on 50% venti and keep o2 sat >90%. place at 0935 by Marilyn RT 0935 neosynephrine gtt decreased to 70mcg/min.
--- NOTE | 2020-03-14 10:16 | HMH.PULMCON ---
*Admission Date: 03/13/20 *Reason for consult:: Acute hypoxic respiratory failure, septic shock *History of present illness: Ms. Ayala is a 79-year-old male with with no prior respiratory complaints, not on any inhalers or oxygen therapy at home, history of hypertension, hypothyroidism, dyslipidemia history of cirrhosis secondary to hepatitis B, chronic kidney disease presented to the hospital with 1 to 2-week of worsening shortness of breath associated with nonproductive cough along with subjective fevers and chills. Along with this patient also complains of dizziness for the last 10 days. on presentation to the ED along with hypoxic respiratory failure patient was also found to be in a flutter for which she was started on Cardizem drip that has led to hypotension for which patient has been requiring phenylephrine since admission. Patient denies any recent hospital admissions in the last 1 year, patient never had any episodes of pneumonia. Patient admits having frequent urinary tract infections before. [facility] History Medical History: Reports:: Anxiety, Depression, Diabetes Mellitus Type 2, Hepatitis, Hyperlipidemia, Hypertension, Osteoporosis, Renal Insufficiency, Urinary Tract Infection Denies:: Cancer, MRSA *Have you ever received a pneumonia vaccine?: Yes *Have you received a flu vaccine this season?: No Other Medical History: Reports: Arthritis, Cataracts, Hypothyroidism, Osteoporosis Laterality Cases: Left: Total Knee Replacement, Right: Total Hip Replacement Other Surgeries: Yes: Colon Resection, Hysterectomy-Total, Hysterectomy-Partial Amputation: No Fractures: No - *Social History Last grade of school completed: High school graduate Smoking Status: Never smoker Alcohol Intake: never Alcohol Intake Frequency:: other Substance Use Type: denies use *Occupational Status:: retired Housing: apartment Household Members: none *Travel in the last 8 weeks: None - Psychiatric History Pschychiatric History:: Reports:: Anxiety, Depression Family Hx:: Cancer, Coronary Artery Disease, Diabetes, Heart Attack, Hyperlipidemia, Hypertension, Thyroid Disorder [facility] Pulmonology ROS - Constitutional Reports anorexia, Reports body ache(s), Reports chills - *Cardiovascular Reports shortness of breath, Reports shortness of breath with activity, Reports irregular heart rhythm - *Respiratory Respiratory: Yes shortness of breath, Yes chest congestion, Yes cough, Yes non-productive cough, Yes dyspnea, Yes dyspnea on exertion, No coughing up blood, No pain on inspiration, No pain with cough, No cough with sputum production, No pain with breathing - *Gastrointestinal Gastrointestingal: Reports: system reviewed and no additional complaints, except as docu - *Musculoskeletal Musculoskeletal: Reports system reviewed and no additional complaints, except as docu - *Neurologic Reports weakness, Denies confusion, Denies localized weakness, Denies headache(s), Denies tingling/numbness/burning sensations Meds Home Medications Medication Instructions Recorded Confirmed Type atorvastatin 40 mg tablet 40 mg PO HS 08/29/17 03/14/20 History buspirone 10 mg tablet 10 mg PO BID 08/29/17 03/14/20 History gabapentin 300 mg capsule 600 mg PO TID 08/29/17 03/14/20 History leflunomide 20 mg tablet 20 mg PO DAILY 08/29/17 03/14/20 History morphine 15 mg tablet,extended 15 mg PO Q12H 08/29/17 03/14/20 History release Aspirin [Aspirin 81mg EC Tab] 81 mg PO DAILY 03/14/20 03/14/20 History Cholecalciferol (Vitamin D3) 1,000 unit PO DAILY 03/14/20 03/14/20 History [Vitamin D3 1,000 Unit Tab] Cyanocobalamin (Vitamin B-12) 1,000 mcg PO DAILY 03/14/20 03/14/20 History [B-12] Furosemide [Furosemide 20mg Tab*] 20 mg PO DAILY 03/14/20 03/14/20 History Levothyroxine Sodium 175 mcg PO DAILY 03/14/20 03/14/20 History [Levothyroxine 175mcg (0.175mg) Tab] Metformin HCl 500 mg PO DAILY 03/14/20 03/14/20 History Metoprolol Succinate [Metoprolol 25 mg PO DAILY
--- NOTE | 2020-03-14 10:30 | PC.NURSE ---
Called to bedside by RN for Pt becoming Hypoxic during an ultrasound. Upon entering the room the Pt on 50% Venti mask SPO2 76%. Placed PT on 100% NRB SPO2 100%, Pt did not tolerate mask very well Pt was very anxious and states she wants it off her face. Placed Pt on Vapotherm at 30L 70% SPO2 88-92%. Pt resting comfortably HR 109, RR 16bpm. Will continue to monitor
--- NOTE | 2020-03-14 10:40 | PC.NURSE ---
during ultrasound pt became intolerable of venti mask, started yellowing she couldnt breathe, trying to pull mask off. o2 sat dropped as low as 67% with mask off. RT called to bedside and Dr. Warren paged and stated to place back on vapotherm. pt is tolerating vapotherm well. 30L 70%fio2. o2 sats in low 90's. at 1030 neonephrine gtt decreased to 60mcg/min.
--- NOTE | 2020-03-14 11:07 | PC.NURSE ---
PAGEMiriam ORONA REGARDING URINE OUTPUT ON 7ML THUS FAR, AFTER LASIX.
[2020-03-14 11:24] LABS: POC Glucose,Bedside 118 (70-110)
[2020-03-14 11:31] LABS: Adenovirus,PCR Not Detected (NotDetected); Bordetella Pertussis Not Detected (NotDetected); Chlamydophila Pneumoniae, PCR Not Detected (NotDetected); Coronavirus 229E Not Detected (NotDetected); Coronavirus NL63 Not Detected (NotDetected); Coronavirus OC43 Not Detected (NotDetected); Coronovirus HKU1,PCR Not Detected (NotDetected); Human Metapneumovirus Not Detected (NotDetected); Influenza A, PCR Not Detected (NotDetected); Influenza AH1, 2009 Not Detected (NotDetected); Influenza AH1, PCR Not Detected (NotDetected); Influenza AH3,PCR Not Detected (NotDetected); Influenza B, PCR Not Detected (NotDetected); Mycoplasma Pneumoniae, PCR Not Detected (NotDetected); Parainfluenza 1, PCR Not Detected (NotDetected); Parainfluenza 2, PCR Not Detected (NotDetected); Parainfluenza 3, PCR Not Detected (NotDetected); Parainfluenza 4, PCR Not Detected (NotDetected); Respiratory Syncytial Virus Not Detected (NotDetected); Rhinovirus/Enterovirus Not Detected (NotDetected)
[2020-03-14 12:19] LABS: Creatinine,Urine Random 89 mg/dL (Not Estab.); Urea Nitrogen,Urine Random 80 mg/dl (Not Estab.)
--- NOTE | 2020-03-14 12:38 | PC.NURSE ---
dr. sinclair aware of urine out put, no new orders.
--- NOTE | 2020-03-14 12:38 | PC.NURSE ---
lab notified this rn of need for more urine to run additional test, as soon as pt puts out more urine it will be sent down.
--- NOTE | 2020-03-14 12:59 | CA_ITS ---
APPROVED REPORT Inspector Plating: Valencia Lopez RVT Study Quality: Poor Indications: abnormal renal ultrasound,? DECREASED BLOODFLOW SEEN ON RENAL U/S,NO URINE OUTPUT, BEST EXAM POSSIBLE R/T PT CONDITION Risk Factors Hypertension Hyperlipidemia Diabetes Renal Artery Doppler Mid (R) 56.1/ cm/sec Distal (R) 64.7/ cm/sec Renal Aorta Ratio (R) 0.64 Mid (L) 99.6/ cm/sec Distal (L) 133.3/ cm/sec Renal Aorta Ratio (L) 1.32 Findings Very limited study related to patient condition. Bloodflow is seen in the bilateral kidneys but is decreased, doppler velocities decreased in the right kidney. Proximal renal arteries were not visualized. Conclusion Very limited study related to patient condition. Bloodflow is seen in the bilateral kidneys but is decreased, doppler velocities decreased in the right kidney. Proximal renal arteries were not visualized. Electronically signed by : Naun Vazquez MD 03/14/2020 17:14:25
--- NOTE | 2020-03-14 17:38 | PC.NURSE ---
pt has done okay today. she states she is feeling better but gets anxious when moving because she becomes sob. lungs have wheezing noted, and bases are diminished. pt has neosynphrine currently going at 70mcg/min it was increased at 1130, cardizem at 5mg/hr, and NS at 100ml/hr per order. pt ate half an ice cream and drank half an ensure. pt did refuse to be turned a couple times this shift d/t being afraid of becoming sob. education given. pt cont. on vapotherm at 30L 70%FiO2. pt currently still in afib/flutter on tele rate is in the 80-90's. will cont. to monitor. sons report pt has poor po intake at home and when she uses the bathroom she barely goes.
[2020-03-14 19:51] LABS: POC Glucose,Bedside 84 (70-110)
--- NOTE | 2020-03-14 21:34 | XR_ITS ---
PROCEDURE: XR CHEST PORTABLE CLINICAL HISTORY: SOA COMPARISON: CR XR CHEST PORTABLE from 03/13/2020 CR XR CHEST PORTABLE from 03/14/2020 FINDINGS: There are low lung volumes. There is diffuse bilateral alveolar disease consistent with diffuse pneumonia. There is cardiomegaly. IMPRESSION: Low lung volumes with diffuse bilateral airspace disease probably unchanged given difference in inspiration. Dictated by: Naun Vazquez MD 03/15/2020 06:05 Naun Vazquez MD in [place] 03/15/2020 06:05
[2020-03-14 21:38] LABS: ABG HCO3 13.2 mmhg (22.0-26.0); ABG Oxygen Saturation 95 % (90-100); ABG PO2 86.3 mmhg (80-100); ABG TCO2 14.5 mmhg (23-27)
[2020-03-14 21:40] LABS: Oxygen 100 %; Source Right Radial
[2020-03-14 21:41] LABS: ABG PH 7.13 mmol/L (7.35-7.45)
--- NOTE | 2020-03-14 21:41 | ECG_ITS ---
APPROVED REPORT Exam: Resting ECG HR:92 bpm ECG Measurements Heart Rate 92 AXES QRSd 62 QRS 114 QT 316 T 187 QTc 390 Conclusion Atrial fibrillation Right axis deviation Low voltage QRS Septal infarct, age undetermined Abnormal ECG Electronically signed by : Roberto Carlos Dickerson, 03/18/2020 13:58:21
--- NOTE | 2020-03-14 22:43 | HMH.RR ---
Acute Rapid Response Note - Subjective Date Responded: 03/14/20 Time Responded: 22:00 - Objective Findings: Vital Signs - Last 4 Hours Temperature 97.7 F 03/14/20 19:48 Temperature Source Oral 03/14/20 19:48 Pulse Rate 102 H 03/14/20 20:00 Respiratory Rate 14 03/14/20 18:00 Blood Pressure 111/62 03/14/20 19:00 Blood Pressure Mean 78 03/14/20 19:00 Blood Pressure Source Automatic Cuff 03/14/20 19:00 Blood Pressure Position Supine 03/14/20 19:00 02 Sat by Pulse Oximetry 93 L 03/14/20 20:00 Oxygen Delivery Method 03/14/20 20:26 Oxygen Flow Rate (LPM) 30 03/14/20 20:00 Lab Results for Past 12 Hours 03/14/20 21:34: Specimen Source Right radial, O2 % 100, ABG pH 7.13 L*, ABG pCO2 41.0, ABG pO2 86.3, ABG HCO3 13.2 L, ABG Total CO2 14.5 L, ABG O2 Saturation 95, ABG Base Excess -16.0 L 03/14/20 16:45: POC Glucose 84 03/14/20 11:48: Ur Random Urea Nitrogn 80, Urine Creatinine 89 03/14/20 11:25: Chlamy pneumoniae PCR Not detected, Adenovirus (PCR) Not detected, B. pertussis DNA (PCR) Not detected, Coronavirus OC43 (PCR) Not detected, Coronavirus HKU1 (PCR) Not detected, Coronavirus 229E (PCR) Not detected, Coronavirus NL63 (PCR) Not detected, Human Metapneumovir PCR Not detected, Influenza A (H1) PCR Not detected, Influ A (H1N1/09) PCR Not detected, Influenza A (H3) PCR Not detected, Influenza Type A (PCR) Not detected, Influenza Type B (PCR) Not detected, M. pneumoniae (PCR) Not detected, Parainfluenza 1 (PCR) Not detected, Parainfluenza 2 (PCR) Not detected, Parainfluenza 3 (PCR) Not detected, Parainfluenza 4 (PCR) Not detected, RSV (PCR) Not detected, Entero/Rhino (PCR) Not detected 03/14/20 11:16: POC Glucose 118 H My Orders Category Date Time Status XR chest portable Stat Exams 03/14/20 21:34 Taken Azithromycin [Zithromax 500mg ADV] 500 mg Med 03/14/20 21:00 Active 0.9 % Sodium Chloride [Sod Chloride 0.9% 250mL Adv] 250 ml IV 2100 Ceftriaxone Sodium [Rocephin 1gm vial] 1 gm Med 03/14/20 17:00 Active 0.9 % Sodium Chloride [Sod Chlor 0.9% 50mL bag] 50 ml IV 1700 12-lead EKG Request [ECG Request by /Nse] Stat Y 03/14/20 21:34 Ordered pt with progressive sob this bm with dec bp Rapid Response Exam - General General appearance: in distress - Head Head exam: normocephalic - Eye Eye exam: Present: PERRL, EOMI - ENT ENT exam: Present: mucous membranes dry - Neck Neck exam: Present: trachea midline - Respiratory Respiratory exam: Present: respiratory distress, accessory muscle use - Cardiovascular Cardiovascular exam: Present: tachycardia - Extremities Exam Extremities exam: Absent: calf tenderness - Neurological Exam Neurological exam: Absent: motor sensory deficit - Skin Skin exam: Absent: rash RR Procedures/Assess/Plan (1) Respiratory failure Status: Acute Qualifiers: Chronicity: acute on chronic Respiratory failure complication: unspecified whether with hypoxia or hypercapnia Qualified Code(s): J96.20 - Acute and chronic respiratory failure, unspecified whether with hypoxia or hypercapnia (2) Metabolic acidosis Status: Acute - Assessment and plan all Dx Assessment and Plan for all problems:: family wishes no code status at this time but continue current meds
--- NOTE | 2020-03-14 23:40 | PC.NURSE ---
[id number] CALLED THIS NURSE AND D/CD THE LABS
[2020-03-15] VITALS (12 sets, daily range): BP systolic 97–128; BP diastolic 37–75; PULSE 60–102; RESP 2–17; TEMP 36–36.6; O2SAT 78–96
--- NOTE | 2020-03-15 00:05 | PC.NURSE ---
2139 THIS NURSE WENT TO SPEAK WITH HER SONS,SETH AND DIAMOND CONCERNING WHETHER THEY WANTED ACLS DRUGS GIVEN, CHEST COMPRESSION DONE, AND PT TO BE INTUBATED AND PUT ON VENTILATOR.THEY DISCUSSED THIS AMONG THEMSELVES AND SETH DID STATE HE WANTED US TO CONTINUE THE THINGS,DRIPS ETC ,WE ARE DOING NOW BUT BOTH DID REQUEST HER TO BE DNR BUT THEY WANTED TO SEE HER FIRST. THIS DISCUSSION HAD TAKEN PLACE IN WAITING ROOM ON .
[2020-03-15 00:18] LABS: POC Glucose,Bedside 111 (70-110)
--- NOTE | 2020-03-15 00:18 | PC.NURSE ---
2230 03/14/20 BOTH SONS HAD JUST SIGNED DNR FORM. NOW IN ROOM SPEAKING WITH SONS. HE ALSO SIGNED DNR FORM
[2020-03-15 00:19] LABS: ABG Base Excess -14.8 mmol/L (-2.4-2.3); ABG HCO3 15.2 mmhg (22.0-26.0); ABG Oxygen Saturation 90 % (90-100); ABG PO2 74.3 mmhg (80-100); ABG TCO2 16.8 mmhg (23-27)
[2020-03-15 00:23] LABS: Oxygen 100 %; Source Right Radial
[2020-03-15 00:27] LABS: ABG PCO2 52.1 mmhg (35.0-45.0); ABG PH 7.08 mmol/L (7.35-7.45)
--- NOTE | 2020-03-15 01:20 | PC.NURSE ---
At 2099, pt became hypotensive and c/o soa. BP 73/54. Bj synephrine titrated from 70 to 100 mcg/min. Pt was also noted to be very anxious and tachypneic. Pt repeated help me, I need something . RT was called and came to room. Vapotherm was increased from 70% 30 L to 100% 40 L. MD Sharp was notified of pt condition @ 2110. BP declining 67/45. Bj titrated to 140 mcg/min recommended to call Vikas. Difficulty obtaining manual BP. Bj gtt titrated to 180 mcg/min. Vikas notified @ 2119 of pt condition. recommended to continue to titrate Bj synephrine gtt up and call rapid response. Bj titrated to 200 mcg/min per MD. Rapid response Red was called at 2123. BP also improved at this time. 97/49. MD Hollis responded. ABG, EKG, Troponin, CXR, CBC, BMP. 2128 BP 95/47 on Bj synephrine gtt @ 200 mcg/min . 2139, 0.5 mg Ativan IV ordered and administered. Spoke with Aron and updated him on pt condition. BP improving and pt is less restless and less soa. 2199 BP 118/77. Bj gtt titrated to 180 mcg/min. Aron called 2209 for update on pt. BP 116/33. 2220 BP 110/49. 2230 DNR obtained and on chart. 2237 MD Hollis dc'd labs. 2250, Aron notified of DNR status. 230 MD Verma ordered 2 amps of Bicarb and repeat BAG in 30 min. Sent staff to obtain bicarb. 2307, spoke with Telma about pt status. Bicarb administered @ 2320. 0030 ABG Results called to Vikas. 0032 Aron called to update on pt. Morphine 2 mg IV q 2 hrs prn ordered. Education provided to family about benefits and side effects of medication, Morphine. Morphine administered @ 0110. Family remains in room at pt beside.
--- NOTE | 2020-03-15 04:17 | PC.NURSE ---
Family remains at bedside. Spoke with family about their questions regarding further care. Pt is considering turning off gtts to maintain BP. Pt is currently on Cardizem @ 5 mg/hr. Bj synephrine @ 180 mcg/min. NS @ 100 ml/hr. Vapotherm 100% 40 L. BP is 114/51, P 104, 96%, R 16. Pt has been sleeping for most of this am. She occasionally opens eyes, but is less responsive. Skin is pallor. Urine output is 10 cc. Will continue to monitor.
[2020-03-15 06:06] LABS: MANUAL DIFFERENTIAL MANUAL DIFFERENTIAL (MANUAL DIFF)
--- NOTE | 2020-03-15 06:20 | PC.NURSE ---
Pt is unresponsive at this time. Extremities are becoming mottled. BP is currently 99/40, O2 84%, R 18, HR 101. Pt remains on vapotherm @100%, 40 L. Spoke with family about current care. Pt's son inquired again about possibly discontinuing IV gtts. Education provided. Will continue to monitor.
[2020-03-15 06:31] LABS: Chloride 118 mmol/L (98-107)
[2020-03-15 06:32] LABS: Potassium 5.6 mmoL/L (3.5-5.1); Sodium 144 mmol/L (136-145)
[2020-03-15 06:34] LABS: Alanine Aminotransferase 21 U/L (12-78); Alkaline Phosphatase 125 U/L (38-126); Aspartate Amino Transferase 73 U/L (14-36); Bilirubin,Total 1.1 mg/dl (0.2-1.3); Blood Urea Nitrogen 47 mg/dl (7-17); Creatinine Clearance Estimated 17 mL/min (50-200); Estimated Glomerular Filt Rate 16 ml/min (>60); GFR (African American) 19 ML/MIN (>60)
[2020-03-15 06:35] LABS: Albumin Level 2.4 g/dl (3.5-5.0); Albumin/Globulin Ratio 0.7 (1.1-1.8); Anion Gap 17.6 mEq/L (5-15); Calcium 7.8 mg/dl (8.4-10.2); Carbon Dioxide 14 mmol/L (22.0-30.0); Globulin 3.4 g/dL (1.3-3.2); Glucose 108 mg/dl (74-100); Total Protein,Serum 5.8 g/dl (6.3-8.2)
--- NOTE | 2020-03-15 06:50 | PC.NURSE ---
Pt's family came out into hallway and stated that they would like to discontinue care. They feel that their mom would not want this . MD notified of family's request. MD will come in this morning to address needs. Pt's breathing is becoming more agonal. O2 is declining. RT in room administering breathing tx. BP maintaining on gtt at this time.
--- NOTE | 2020-03-15 08:12 | PC.NURSE ---
0751 report @ BS with Gracie Ch RN and Nicol Plata RN. Both sons @ BS. Pt appears comfortable. Is agonal breathing and unresponsive. Sats in the 50s on Vapotherm 40L/100%. HR irreg 50-115. SBP 140s. Bj gtt @ 160mcg and Cardizem gtt @ 5mg. Bety Dobbs HIDES INSPECTOR on the floor rounding but does not round on this pt until 804. While Bety is listening to heart and lung sounds, I inform her that pt has not had a breath for the last minute. Pt's HR drops to asystole. Bety verbally ordered to STOP both gtts but to keep Vapotherm on at this time. She is unable to pronounce TOD @ this time and will update Dr. Paredes. Dr. Paredes was also notified by Gracie Ch by phone and will come to BS to pronounce. Both sons continue to be @ BS and appear to be coping appropriately.
--- NOTE | 2020-03-15 08:27 | HMH.ACPN2 ---
Internal Medicine - PN: Subj *Date: 03/15/20 *Time: 08:36 Interval history: Patient has had continued decline. She continues without urinary output. She remains on Bj-Synephrine and Cardizem drips. Family is at bedside. While in the room patient began with agonal respiratory effort and then with a rare respiratory effort. Occasional escape beat on monitor. Exam Vital signs and Labs for Last 24 Hours: Temp Pulse Resp BP Pulse Ox 96.8 F L 98 H 17 108/75 L 78 L 03/15/20 07:58 03/15/20 06:02 03/15/20 06:00 03/15/20 06:00 03/15/20 06:02 Laboratory Results - last 24 hr 03/14/20 11:16: POC Glucose 118 H 03/14/20 11:25: Chlamy pneumoniae PCR Not detected, Adenovirus (PCR) Not detected, B. pertussis DNA (PCR) Not detected, Coronavirus OC43 (PCR) Not detected, Coronavirus HKU1 (PCR) Not detected, Coronavirus 229E (PCR) Not detected, Coronavirus NL63 (PCR) Not detected, Human Metapneumovir PCR Not detected, Influenza A (H1) PCR Not detected, Influ A (H1N1/09) PCR Not detected, Influenza A (H3) PCR Not detected, Influenza Type A (PCR) Not detected, Influenza Type B (PCR) Not detected, M. pneumoniae (PCR) Not detected, Parainfluenza 1 (PCR) Not detected, Parainfluenza 2 (PCR) Not detected, Parainfluenza 3 (PCR) Not detected, Parainfluenza 4 (PCR) Not detected, RSV (PCR) Not detected, Entero/Rhino (PCR) Not detected 03/14/20 11:48: Ur Random Urea Nitrogn 80, Urine Creatinine 89 03/14/20 16:45: POC Glucose 84 03/14/20 20:57: POC Glucose 111 H 03/14/20 21:34: Specimen Source Right radial, O2 % 100, ABG pH 7.13 L*, ABG pCO2 41.0, ABG pO2 86.3, ABG HCO3 13.2 L, ABG Total CO2 14.5 L, ABG O2 Saturation 95, ABG Base Excess -16.0 L 03/15/20 00:16: Specimen Source Right radial, O2 % 100, ABG pH 7.08 L*, ABG pCO2 52.1 H, ABG pO2 74.3 L, ABG HCO3 15.2 L, ABG Total CO2 16.8 L, ABG O2 Saturation 90, ABG Base Excess -14.8 L 03/15/20 05:33: WBC 16.3 H, RBC 3.60 L, Hgb 11.1 L, Hct 40.6, MCV 112.8 H, MCH 30.9, MCHC 27.4 L, RDW 29.5 H* D, Plt Count 220 D, MPV 26.2 H, Neut % (Auto) 81.9 H, Lymph % (Auto) 13.9, Kings % (Auto) 3.2, Eos % (Auto) 1.0, Baso % (Auto) 7.8 H, Neut # (Auto) 13.4 H, Lymph # (Auto) 2.3, Kings # (Auto) 0.5, Eos # (Auto) 0.2, Baso # (Auto) 1.3 H 03/15/20 05:33: Sodium 144, Potassium 5.6 H, Chloride 118 H, Carbon Dioxide 14 L, Anion Gap 17.6 H, BUN 47 H, Creatinine 2.90 H D, Estimated Creat Clear 17, Estimated GFR 16 L*, Est GFR ( Amer) 19 L* D, Glucose 108 H, Calcium 7.8 L, Total Bilirubin 1.1, AST 73 H D, ALT 21 D, Alkaline Phosphatase 125, Total Protein 5.8 L, Albumin 2.4 L D, Globulin 3.4 H, Albumin/Globulin Ratio 0.7 L I & O for Last 24 hours: Intake & Output 03/12/20 03/13/20 03/14/20 03/15/20 11:59 11:59 11:59 11:59 Intake Total 2300 / 2300 7981 / 7981 Output Total 25 / 25 Balance 2300 / 2300 7956 / 7956 Weight 146 lb 6 oz Microbiology Reports for the Last 24 Hours: Microbiology 03/14/20 10:30 Sputum - Expectorated Sputum Gram Stain - Final 03/14/20 10:30 Sputum - Expectorated Sputum Sputum Culture - Preliminary 03/13/20 22:50 Urine,Clean Catch Urine Culture - Preliminary NO GROWTH AFTER 24 HOURS - Constitutional Comments: Unresponsive. Actively dying - *Routine Respiratory Exam Comments: No audible breath sounds - *Routine Cardiovascular Exam Comments: Occasional escape beat on the monitor - *Routine Abdominal Exam Present: soft. Absent: tenderness, distended - *Routine Extremities Exam Absent: edema - *Routine Neurological Exam Unresponsive Assessment and Plan (1) Respiratory failure Status: Acute Qualifiers: Chronicity: acute on chronic Respiratory failure complication: unspecified whether with hypoxia or hypercapnia Qualified Code(s): J96.20 - Acute and chronic respiratory failure, unspecified whether with hypoxia or hypercapnia Category: Medical Code(s): J96.90 - Respiratory failure, unspecified, unspecif
[2020-03-15 08:34] LABS: Anisocytosis 2+; Lymphocytes % 6 % (10-50); Macrocytosis 2+; Monocytes % 3 % (2-9); Neutrophils % 87 % (42-76); Platelet Estimate Normal; Total Cells Counted 100
[2020-03-15 08:35] LABS: Hypochromasia 1+
[2020-03-15 08:36] LABS: Burr Cells 1+
--- NOTE | 2020-03-15 08:38 | PC.NURSE ---
Dr. Paredes arrive to pt's room
--- NOTE | 2020-03-15 08:52 | PC.NURSE ---
Dr. Paredes called [facility] @ [phone].
[2020-03-15 09:00] LABS: Hematocrit 37.6 % (37.0-47.0); Hemoglobin 10.6 g/dL (12.2-16.2); Red Blood Count 3.44 M/mm3 (4.20-5.40); White Blood Count 12.1 K/mm3 (4.8-10.8)
[2020-03-15 09:01] LABS: Mean Corpuscular HGB Conc 28.3 g/dL (31.8-35.4); Mean Corpuscular Volume 109.4 fl (81-99); Platelet Count 413 K/mm3 (142-424); Red Cell Distribution Width 16.3 % (11.5-17.5)
--- NOTE | 2020-03-15 09:01 | PC.NURSE ---
[facility] contacted. Spoke to Maxwell Daniela (female). . Pt has been ruled out for tissue and organ donation. Pt can be released to home @ this time. Pt will be released to [facility] in [employer] [place] [employer], [place].
[2020-03-15 09:02] LABS: Basophils % 0.2 % (0.1-2.0); Eosinophils % 0.4 % (0.1-12.0); Lymphocytes % 52.2 % (10-50); Monocytes % 2.1 % (1.7-9.3)
[2020-03-15 09:03] LABS: Lymphocytes # 6.3 K/mm3 (0.7-4.5); Monocytes # 0.3 K/mm3 (0.1-1.0); Neutrophils # 12.1 K/mm3 (1.8-7.8)
[2020-03-15 09:04] LABS: Eosinophils # 0.1 K/mm3 (0.0-0.4)
--- NOTE | 2020-03-15 09:13 | PC.NURSE ---
called [facility] home in [place] for body removal. Spoke to Lorenzo Rodriguez. Information given. home will be enroute to [facility] soon.
--- NOTE | 2020-03-15 10:29 | PC.NURSE ---
home arrived to pt's room @ 1015. All pt belongings sent with pt.
[2020-03-15 10:59] LABS: POC Glucose,Bedside 96 (70-110)
[2020-03-16 13:38] LABS: Body Fluid Culture, Sterile Not indicated. (.); Organism ID Not indicated. (.); Specimen Source Urine (.); Streptococcus pneumoniae Ag Negative (Negative)
--- NOTE | 2020-03-18 06:47 | HMH.DCSUM ---
General - General Admission date:: 03/14/20 Discharge date: 03/15/20 HPI HPI: Ms. Ayala is a 79-year-old female with a history of hypertension, hypothyroidism, hyperlipidemia, type 2 diabetes mellitus, depression, history of cirrhosis with history of hepatitis B, mild renal insufficiency, GERD, anemia, osteoarthritis, Pollymyalgia rheumatica and rheumatoid arthritis, and severe lumbar spinal stenosis, as well as osteoporosis who presented to [facility] With progressive shortness of breath and a nonproductive cough at home. Patient denies chest pain. She stated that her breathing was better. She stated that her back was bothering her. In the emergency room patient was noted to have a rapid ventricular response with underlying rhythm felt to be atrial flutter. She was started on IV diltiazem drip for rate control and Bj-Synephrine for hypotension. Troponins returned normal. BNP was noted to be elevated at 14,800. Chest x-ray revealed evidence of bilateral pneumonia versus ARDS pattern. Noted also that patient was COVID negative. She also demonstrated acute on chronic renal insufficiency. White blood cell count was found to be 14,000 with a hemoglobin of 11 and hematocrit of 36.7. ABGs revealed a metabolic acidosis with a pH of 7.2, PCO2 of 36.3, PO2 of 68.8 and a bicarb of 13.9. Urinary tract infection also noted Respiratory PCR panel was negative. At the time of initial exam patient was able to answer questions but was noted to be hard of hearing and responses were slow and brief. She was having an echocardiogram and venous Doppler studies. She had been seen by cardiology with the following: Chads?Vascor at least 5 with a risk of thromboembolic event . Patient started on Lovenox. Preliminary echo showsed ejection fraction of about 50%. Noted also to try weaning of the Bj-Synephrine drip to keep systolic blood pressure greater than 100. Also felt BNP was secondary to pulmonary issues. 80 mg of Lasix was given due to minimal urinary output after greater than 3 L of IV fluids given since arrival to the emergency room. Repeat Labs showed potassium of 5.9. Chest x-ray remained unchanged. Hospital Course Hospital Course: In the emergency room patient was given 2 L fluid boluses. She continued with IV fluids at 100 an hour along with her diltiazem drip and Bj-Synephrine drip. She had minute urinary output and was thus given 80 mg of Lasix to which she had no response. Echocardiogram showed approximately 50% ejection fraction. Renal studies were unremarkable. She was seen by cardiology and by electric operator Dr. Warren who noted leukocytosis neutropenic predominant, elevated lactate on admission at 4.2 improving to 2.6 along with worsening renal function and hyperkalemia. He also noted the oliguric condition. He recommended to continue with the Rocephin and Zithromax for her septic shock likely from community-acquired pneumonia and possible urinary tract infection, to continue oxygen supplementation via Vapotherm and to wean from Bj-Synephrine as tolerated. Patient was able to tolerate some p.o pudding and was able to visit with her family at intervals. In the evening of 03/14/2020 respiratory status deteriorated with a decrease in blood pressure. Rapid response was called. At this time family wished no CODE STATUS but to continue with current meds. Patient continued to decline throughout the night. Bj-Synephrine gtt was increased to its maximum without response. She remained oliguric. She continue with O2 per Vapotherm. The a.m. of 03/15/2020 patient was actively dying. She was noted to have agonal respiratory effort. Family, HER-2 sons, were at bedside. She became pulseless and was not breathing. On 03/15/2020 at 0802 patient was pronounced per Dr. Paredes. [facility] was contacted and she was ruled out for tissue and organ donation. Body was released to [facility] in [facility]. Objective
== END 2020-03-15 10:32 | disposition expired | DRG 871 ==
LOC: ER 22:22 → 2ND 03-14 02:12
PROVIDERS: Internal Medicine Pulmonary Disease; Nurse Practitioner Family; Admitting Provider Family Medicine; Emergency Provider Emergency Medicine; PCP Family Medicine; Visit Provider Family Medicine
DX: R65.21 Severe sepsis with septic shock (principal); A41.9 Sepsis, unspecified organism; J18.9 Pneumonia, unspecified organism; J96.20 Acute and chronic respiratory failure, unspecified whether with hypoxia or hypercapnia; N39.0 Urinary tract infection, site not specified; N17.9 Acute kidney failure, unspecified; B19.10 Unspecified viral hepatitis B without hepatic coma; K74.69 Other cirrhosis of liver; E11.9 Type 2 diabetes mellitus without complications; I10 Essential (primary) hypertension; E03.9 Hypothyroidism, unspecified; Z88.0 Allergy status to penicillin; Z88.2 Allergy status to sulfonamides; Z79.82 Long term (current) use of aspirin; Z79.84 Long term (current) use of oral hypoglycemic drugs; M35.3 Polymyalgia rheumatica; R34 Anuria and oliguria
CPT/HCPCS: 36415; 71045; 76770; 80048; 80053; 81001; 82570; 82803; 82962; 83605; 83735; 83880; 84300; 84436; 84443; 84484; 84540; 85007; 85025; 85610; 86328; 87040; 87070; 87077; 87086; 87186; 87205; 87486; 87581; 87633; 87798; 87899; 93005; 93306; 93970; 93976; 94640; 96365; 96366; 96367; 96375; 99285; J0456